=== PATIENT | male | born 1940 | race Caucasian/White ===

== ENCOUNTER 2020-07-13 07:44 | Inpatient (IN) ==
[2020-07-13] MEDS ORDERED: CARDIZEM INJ 50 MG VIAL ONE ×2 (08:07→08:42)
[2020-07-13] MEDS ORDERED: NS 1000 ML 1,000 ML ONE (08:07)
[2020-07-13] MEDS ORDERED: CARDIZEM INJ 50 MG VIAL IVP ONE ×2 (08:15→08:54)
--- NOTE | 2020-07-13 08:24 | DR.SOBA ---
HPI Time Seen Time Seen by Provider: 07/13/20 08:14 Primary Care Physician Primary Care Physician: KIMBERLY ALEJANDRO Complaints Chief Complaint Doctors Comments: A 79 y/o male presenting with intermittent recurrent c/p x 3 months, with SOB. He has palpitations but he has a hx. of a. fib., CAD-s/p angioplasty x 1 vessel. 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 His symptoms worsened upon awakening this morning. Chief Complaint:: PT. C/O CHEST TIGHTNESS AND SHORTNESS OF BREATH. PT. STATES HE SEEN DR. GUPTA A WEEK OR SO AGO AND IS WAITING TO BE SCHEDULED FOR AN OUT PATIENT STRESS TEST. PAIN WORSENED THIS MORNING WHEN PT. WOKE UP. COVID-19 Coronavirus risk:travel/contact w/high risk person: No Has patient experienced Coronavirus symptoms: Yes Coronavirus symptoms experienced: Shortness of Breath Reviewed Nurses Notes Reviewed: Yes Source History Provided: Patient Mode of Arrival Mode of Arrival: Wheelchair Timing Onset of Chief Complaint: 07/13/20 Duration Duration: Months Context Onset:: At Rest PE Risk Factors:: None History of:: None Currently on:: Neither Prehospital Care:: None Modifying Factors Worsens:: Nothing Improves:: Nothing Associated Signs and Symptoms Associated Signs and Symptoms: Chest Pain If Chest Pain Quality: Other (tightness) Location: Substernal If Cough Cough: None PMH PMH Past Medical History: Yes Past Medical History: Coronary Artery Disease, Diabetes and Dyslipidemia Past Medical History Comment: A-FIB Past Surgical History: Yes Surgical History: Angioplasty/Stents, Appendectomy and Ortho Surgery Family History History of Family Medical Conditions: Yes Family Medical History: Cancer Social History Does patient currently use any type of tobacco product: No Have you used tobacco products in the last 12 months: No Type of Tobacco Use: None Does any household member use tobacco: No Alcohol Use: None Do you use any recreational Drugs:: No Lives With: Alone Lives Where: Home Travel Risk Coronavirus risk:travel/contact w/high risk person: No Has patient experienced Coronavirus symptoms: Yes Coronavirus symptoms experienced: Shortness of Breath Infectious screening In the last 2 months have you had wt loss of >10#?: NO Have you had fever, night sweats or hemotysis?: No Have you traveled outside the country in the last 6 months?: No Isolation: Standard ROS Review of Systems Constitutional: No Symptoms Reported Eyes: No Symptoms Reported ENTM: No Symptoms Reported Respiratoy: Short of Breath Cardiovascular: Chest Pain and Palpitations Gastrointestinal/Abdominal: No Symptoms Reported Genitourinary: No Symptoms Reported Neurological: No Symptoms Reported Musculoskeletal: No Symptoms Reported Integumentary: No Symptoms Reported Hematologic/Lymphatic: No Symptoms Reported Endocrine: No Symptoms Reported Psychiatric: No Symptoms Reported PE Vital Signs Vitals: Temperature 97.8 F Pulse Rate 106 Respiratory Rate 25 Blood Pressure [Left Arm] 149/75 Blood Pressure 147/103 O2 Sat by Pulse Oximetry 94 General Limitations: No Limitations General Appearance: Alert and In No Apparent Distress Head Head Exam: Normal Inspection, Atraumatic and Normocephalic Eyes Eye exam: Normal Appearance and EOMI ENT ENT Exam: Normal Exam, Normal Oropharynx, Normal External Ear Exam and Mucous Membranes Moist Neck Neck Exam: Normal Inspection, Full ROM and Trachea Midline Chest Chest Inspection: Normal Inspection and Symmetric Chest Wall Rise Respiratory Respiratory Exam: Normal Lung Sounds Bilat Cardiovascular Cardiovascular Exam: Tachycardia, Irregular Rhythm, Normal Heart Sounds, +S1 and +S2 Abdominal Exam Abdominal Exam: Normal Inspection, Normal Bowel Sounds and Soft Extremities Extremities Exam: Normal Inspection and Full ROM Back Back Exam: Normal Inspection and Full ROM Neurologic Neurological Exam: Alert and Oriented X3 Psychiatric Psychiatric Exam: Normal Affect and Normal Mood Skin Skin Exam: Dry and Normal Color ROR Labs Reviewed Result Diagrams: 07/13/20 07:55 07/13/20 07:55 Laboratory: WBC 12.8 X10^3/uL (3.6-10.0) H 07/13/20 07:55 RBC 4.70 X10^6/uL (4.7-6.0) 07/13/20 07:55 Hgb 14.7 g/dL (13.5-18.0) 07/13/20 07:55 Hct 44.7 % (42.0-54.0) 07/13/20 07:55 MCV 95.2 fL (80.0-100.0) 07/13/20 07:55 MCH 31.4 pg (27.0-34.0) 07/13/20 07:55 MCHC 33.0 g/dL (33.0-35.0) 07/13/20 07:55 RDW 14.1 % (11.6-16.5) 07/13/20 07:55 Plt Count 256 X10^3/uL (150.0-450.0) 07/13/20 07:55 MPV 9.1 fL (7.4-11.0) 07/13/20 07:55 Neut % (Auto) 75.8 % (42.0-75.0) H 07/13/20 07:55 Lymph % (Auto) 14.9 % (21.0-51.0) L 07/13/20 07:55 [place] % (Auto) 8.0 % (0.0-13.0) 07/13/20 07:55 Eos % (Auto) 0.9 % (0.9-2.9) 07/13/20 07:55 Baso % (Auto) 0.4 % (0.2-1.0) 07/13/20 07:55 Neut # (Auto) 9.7 x10^3/uL (2.2-4.8) H 07/13/20 07:55 Lymph # (Auto) 1.9 X10^3/uL (1.3-2.9) 07/13/20 07:55 [place] # (Auto) 1.0 x10^3/uL (0.3-0.8) H 07/13/20 07:55 Eos # (Auto) 0.1 x10^3/uL (0.0-0.2) 07/13/20 07:55 Baso # (Auto) 0.1 X10^3/uL (0.0-0.1) 07/13/20 07:55 Absolute Nucleated RBC 0.1 /100WBC 07/13/20 07:55 Sodium 141 mmol/L (136-145) 07/13/20 07:55 Corrected Sodium 144 mmol/L (136-145) 07/13/20 07:55 Potassium 4.3 mmol/L (3.5-5.1) 07/13/20 07:55 Chloride 105 mmol/L (98-107) 07/13/20 07:55 Carbon Dioxide 28.4 mmol/L (21-32) 07/13/20 07:55 BUN 26 mg/dL (7-18) H 07/13/20 07:55 Creatinine 1.62 mg/dL (0.70-1.30) H 07/13/20 07:55 Est GFR (MDRD) Af Amer 53 (>60) L 07/13/20 07:55 Est GFR (MDRD) Non-Af 44 (>60) L 07/13/20 07:55 Glucose 239 mg/dL (65-99) H 07/13/20 07:55 Calcium 9.3 mg/dL (8.5-10.1) 07/13/20 07:55 Corrected Calcium TNP 07/13/20 07:55 Total Bilirubin 0.80 mg/dL (0.2-1.0) 07/13/20 07:55 AST 18 Units/L (15-37) 07/13/20 07:55 ALT 26 Units/L (12-78) 07/13/20 07:55 Alkaline Phosphatase 58 Units/L (46-116) 07/13/20 07:55 Creatine Kinase 31 Units/L (39-308) L 07/13/20 07:55 CK-MB (CK-2) < 1.0 ng/mL (0-4.0) 07/13/20 07:55 CK/CKMB % Calc 3.2 % (<4) 07/13/20 07:55 Troponin I < 0.02 ng/mL (0-1.5) 07/13/20 07:55 Total Protein 8.3 g/dL (6.4-8.2) H 07/13/20 07:55 Albumin 3.6 g/dL (3.4-5.0) 07/13/20 07:55 Globulin 4.7 g/dL (2.5-4.5) H 07/13/20 07:55 Albumin/Globulin Ratio 0.8 Ratio (1.1-2.1) L 07/13/20 07:55 EKG Rate: 156 [place]: Normal Rhythm: Afib Block: None Hypertrophy: None ST: Normal Opioid Opioid Risk Tool Age (Julio Cesar box if 16-45): No History of Preadolescent Sexual Abuse: No Total: 0 Total Score Risk Category: Low Risk Copyright: [place] [employer] predicting aberrant behaviors Diagnosis Discharge Problem: A-fib Qualifiers: Atrial fibrillation type: paroxysmal Qualified Code(s): I48.0 - Paroxysmal atrial fibrillation Chest pain Qualifiers: Chest pain type: unspecified Qualified Code(s): R07.9 - Chest pain, unspecified CAD (coronary artery disease) Qualifiers: Coronary Disease-Associated Artery/Lesion type: [place] artery [place] vs. transplanted heart: [place] heart Associated angina: with stable angina Qualified Code(s): I25.118 - Atherosclerotic heart disease of [place] coronary artery with other forms of angina pectoris Type 2 diabetes mellitus Qualifiers: Diabetes mellitus long-term insulin use: without buttermaker helper use Diabetes mellitus complication status: without complication Qualified Code(s): E11.9 - Type 2 diabetes mellitus without complications Instructions Instructions: Atrial Fibrillation, [id number] ADDITIONAL NOTES Additional Notes Additional Notes: Name: TARAH CHOE : 1940 Sex: M Location: ER Order Number(s): [id number] Procedure(s):CHEST, 1 VIEW Ordering Physician: CESAR MAO Primary Care: Faisal Storm Service Date: 07/13/20 Service Time: 0814 HISTORY Chest pain, shortness of breath STUDY Chest AP portable COMPARISON None FINDINGS The heart is enlarged. No congestive heart failure is noted. The aorta is calcified. The aortic knob appears dilated. Chest CT with contrast should be considered for further evaluation of the thoracic aorta. The lungs are free of acute infiltrates. No pleural effusions are identified. Bony thorax is unremarkable. IMPRESSION Mild cardiomegaly without congestive heart failure No infiltrates Prominent aortic knob. Chest CT with contrast would be of further diagnostic value in assessing the thoracic aorta and should be considered. Electronically signed by: CATHERINE CHOE (Jul 13, 2020 08:51:17)
[2020-07-13 08:30] LABS: BASOPHILS # (AUTO) 0.1 X10^3/uL (0.0-0.1); BASOPHILS % (AUTO) 0.4 % (0.2-1.0); EOSINOPHILS # (AUTO) 0.1 x10^3/uL (0.0-0.2); EOSINOPHILS % (AUTO) 0.9 % (0.9-2.9); HEMATOCRIT 44.7 % (42.0-54.0); HEMOGLOBIN 14.7 g/dL (13.5-18.0); LYMPHOCYTES # (AUTO) 1.9 X10^3/uL (1.3-2.9); LYMPHOCYTES % (AUTO) 14.9 % (21.0-51.0); MEAN CORPUSCULAR HEMOGLOBIN 31.4 pg (27.0-34.0); MEAN CORPUSCULAR VOLUME 95.2 fL (80.0-100.0); MEAN PLATELET VOLUME 9.1 fL (7.4-11.0); NEUTROPHILS # (AUTO) 9.7 x10^3/uL (2.2-4.8); NEUTROPHILS % (AUTO) 75.8 % (42.0-75.0); PLATELET COUNT 256 X10^3/uL (150.0-450.0); RED CELL DISTRIBUTION WIDTH 14.1 % (11.6-16.5); WHITE BLOOD COUNT 12.8 X10^3/uL (3.6-10.0)
[2020-07-13 08:41] LABS: BLOOD UREA NITROGEN 26 mg/dL (7-18); CALCIUM 9.3 mg/dL (8.5-10.1); CARBON DIOXIDE 28.4 mmol/L (21-32); CHLORIDE 105 mmol/L (98-107); COR NA(FOR HYPERGLY) 144 mmol/L (136-145); CREATININE 1.62 mg/dL (0.70-1.30); SODIUM 141 mmol/L (136-145); TROPONIN I < 0.02 ng/mL (0-1.5); eGFR NON BLACK RACES 44 (>60)
[2020-07-13 08:45] LABS: ALANINE AMINOTRANSFERASE 26 Units/L (12-78); ALBUMIN 3.6 g/dL (3.4-5.0); ALKALINE PHOSPHATASE 58 Units/L (46-116); ASPARTATE AMINO TRANSFERASE 18 Units/L (15-37); CKMB % 3.2 % (<4); CREATINE KINASE 31 Units/L (39-308); CREATINE KINASE MB < 1.0 ng/mL (0-4.0); TOTAL PROTEIN 8.3 g/dL (6.4-8.2)
--- NOTE | 2020-07-13 08:53 | RAD ---
HISTORYChest pain, shortness of breathSTUDYChest AP portableCOMPARISONNoneFINDINGSThe heart is enlarged. No congestive heart failure is noted. The aorta is calcified. The aortic knob appears dilated. Chest CT with contrast should be considered for further evaluation of the thoracic aorta. The lungs are free of acute infiltrates. No pleural effusions are identified. Bony thorax is unremarkable.IMPRESSIONMild cardiomegaly without congestive heart failureNo infiltratesProminent aortic knob. Chest CT with contrast would be of further diagnostic value in assessing the thoracic aorta and should be considered.Electronically signed by: CATHERINE CHOE (Jul 13, 2020 08:51:17)
[2020-07-13] MEDS: NS 1000 ML 1,000 ML IV SCH (08:55)
[2020-07-13] MEDS ORDERED: FLEXERIL TAB 10 MG PO PRN (09:48)
[2020-07-13] MEDS ORDERED: NITROSTAT SL PRN (09:48)
[2020-07-13] MEDS ORDERED: RESTORIL CAP 15 MG PO PRN (09:48)
[2020-07-13] MEDS: CARDIZEM INJ 125 MG VIAL 125 MG in NS 100 ML IV 100 ML IV PRN ×2 (10:25→21:28)
[2020-07-13] MEDS ORDERED: HumaLOG SC PRN (14:25)
[2020-07-13] MEDS ORDERED: CARDIZEM TAB 30 MG PLAIN PO SCH (14:25)
[2020-07-13 14:31] LABS: CKMB % 3.5 % (<4); CREATINE KINASE 29 Units/L (39-308); CREATINE KINASE MB < 1.0 ng/mL (0-4.0); TROPONIN I < 0.02 ng/mL (0-1.5)
[2020-07-13] MEDS ORDERED: HumuLIN R SUBCUT PRN (17:42)
[2020-07-13] MEDS ORDERED: GLUCOTROL ONE (20:00)
[2020-07-13] MEDS ORDERED: SNACK - Diabetic Appropriate PO SCH ×2 (20:00)
[2020-07-13] MEDS ORDERED: GLUCOPHAGE ONE (20:01)
[2020-07-13] MEDS ORDERED: CELEBREX PO ONE (20:01)
[2020-07-13] MEDS ORDERED: LIPITOR TAB 20 MG ONE (20:01)
[2020-07-13] MEDS ORDERED: TRICOR TAB 48 MG ONE (20:01)
[2020-07-13] MEDS: CELEBREX PO SCH (20:45)
[2020-07-13] MEDS: GLUCOTROL PO SCH (20:45)
[2020-07-13] MEDS ORDERED: GLUCOPHAGE PO SCH (21:00)
[2020-07-13] MEDS ORDERED: TRICOR TAB 48 MG PO SCH (21:00)
[2020-07-13] MEDS ORDERED: LIPITOR TAB 20 MG PO SCH (21:00)
[2020-07-13 21:06] LABS: CKMB % 3.2 % (<4); CREATINE KINASE 31 Units/L (39-308); CREATINE KINASE MB < 1.0 ng/mL (0-4.0); TROPONIN I 0.02 ng/mL (0-1.5)
[2020-07-14 03:12] LABS: CKMB % 3.3 % (<4); CREATINE KINASE 30 Units/L (39-308); CREATINE KINASE MB < 1.0 ng/mL (0-4.0); TROPONIN I 0.02 ng/mL (0-1.5)
[2020-07-14 05:38] LABS: BASOPHILS # (AUTO) 0.1 X10^3/uL (0.0-0.1); BASOPHILS % (AUTO) 0.5 % (0.2-1.0); EOSINOPHILS # (AUTO) 0.2 x10^3/uL (0.0-0.2); EOSINOPHILS % (AUTO) 2.5 % (0.9-2.9); HEMATOCRIT 39.8 % (42.0-54.0); HEMOGLOBIN 13.2 g/dL (13.5-18.0); LYMPHOCYTES # (AUTO) 1.2 X10^3/uL (1.3-2.9); LYMPHOCYTES % (AUTO) 11.9 % (21.0-51.0); MEAN CORPUSCULAR HEMOGLOBIN 31.7 pg (27.0-34.0); MEAN CORPUSCULAR HGB CONC 33.2 g/dL (33.0-35.0); MEAN CORPUSCULAR VOLUME 95.4 fL (80.0-100.0); MEAN PLATELET VOLUME 9.1 fL (7.4-11.0); MONOCYTES # (AUTO) 0.9 x10^3/uL (0.3-0.8); MONOCYTES % (AUTO) 8.8 % (0.0-13.0); NEUTROPHILS # (AUTO) 7.7 x10^3/uL (2.2-4.8); NEUTROPHILS % (AUTO) 76.3 % (42.0-75.0); PLATELET COUNT 185 X10^3/uL (150.0-450.0); RED BLOOD COUNT 4.17 X10^6/uL (4.7-6.0); RED CELL DISTRIBUTION WIDTH 13.9 % (11.6-16.5); WHITE BLOOD COUNT 10.1 X10^3/uL (3.6-10.0)
[2020-07-14 05:45] LABS: ALANINE AMINOTRANSFERASE 23 Units/L (12-78); ALKALINE PHOSPHATASE 50 Units/L (46-116); ASPARTATE AMINO TRANSFERASE 16 Units/L (15-37); BLOOD UREA NITROGEN 29 mg/dL (7-18); CALCIUM 9.1 mg/dL (8.5-10.1); CARBON DIOXIDE 24.9 mmol/L (21-32); CHLORIDE 109 mmol/L (98-107); COR CA(FOR HYPOALB) 9.9 mg/dL (8.5-10.1); COR NA(FOR HYPERGLY) 145 mmol/L (136-145); CREATININE 1.22 mg/dL (0.70-1.30); SODIUM 143 mmol/L (136-145); TOTAL PROTEIN 7.3 g/dL (6.4-8.2); eGFR NON BLACK RACES > 60 (>60)
[2020-07-14] MEDS: CARDIZEM INJ 125 MG VIAL 125 MG in NS 100 ML IV 100 ML IV PRN (08:53)
[2020-07-14] MEDS: CELEBREX PO SCH (08:57)
[2020-07-14] MEDS ORDERED: MULTAQ PO SCH (09:00)
[2020-07-14] MEDS ORDERED: PLAVIX PO SCH (09:00)
[2020-07-14] MEDS ORDERED: CYMBALTA PO SCH (09:00)
[2020-07-14] MEDS ORDERED: IMDUR PO SCH (09:00)
[2020-07-14] MEDS ORDERED: PROTONIX TAB 40 MG PO SCH (09:00)
[2020-07-14] MEDS ORDERED: CARDIZEM CD 120 MG 24-HR PO SCH (09:00)
[2020-07-14] MEDS: GLUCOTROL PO SCH (09:05)
[2020-07-14] MEDS: NS 1000 ML 1,000 ML IV SCH (09:06)
[2020-07-14 10:05] LABS: CHOL/HDL RATIO 3.5 (0.0-5.0)
[2020-07-14 11:44] LABS: CKMB % 3.6 % (<4); CREATINE KINASE 28 Units/L (39-308); CREATINE KINASE MB < 1.0 ng/mL (0-4.0); TROPONIN I < 0.02 ng/mL (0-1.5)
[2020-07-14] MEDS ORDERED: ASPIRIN 81 MG CHEWTAB PO STA (11:52)
[2020-07-14] MEDS ORDERED: HEPARIN SODIUM IN D5W 25,000 UNITS/500 ML BAG IV PRN (11:55)
[2020-07-14] MEDS ORDERED: NITRO-BID OINT 2% UD (E.R. USE ONLY) TD ONE (11:58)
[2020-07-14] MEDS ORDERED: HEPARIN SODIUM INJ 5000 UNITS ONE (13:01)
--- NOTE | 2020-07-14 13:11 | DR.H&P ---
H&P - History & Physical for Day of: H&P Date: 07/13/20 - Chief Complaint Chief Complaint: CHEST PAIN - History of Present Illness History of Present Illness: PT IS 79 WM ER ADMISSION WITH CO CHEST PAIN AND SOB. PT CO CHEST PAIN "PRESSURE". PT CO INCREASED SOB OVER PAST FEW WEEKS. PT CO DIZZY EPISODES. A 79 y/o male presenting with intermittent recurrent c/p x 3 months, with SOB. He has palpitations but he has a hx. of a. fib., CAD-s/p an gioplasty x 1 vessel. 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 PT WAS IN AFIB WITH RVR ON ARRIVAL. PT ADMITTED TO ICU FOR TREATMENT OF ACUTE ILLNESS - Past Medical History Past Medical History: Coronary Artery Disease, Dyslipidemia, Diabetes - Past Surgical History Surgical History: Appendectomy, Ortho Surgery - Family History Family Medical History: Diabetes Mellitus, Coronary Artery Disease - Social History Does patient currently use any type of tobacco product: No Have you used tobacco products in the last 12 months: No Type of Tobacco Use: None Does any household member use tobacco: No Alcohol Use: None Drug Use: None - Medications Home Medications: morphine Adverse Reaction (Verified 07/13/20 07:53) red dye Adverse Reaction (Verified 07/13/20 07:53) Sulfa (Sulfonamide Antibiotics) Adverse Reaction (Verified 07/13/20 07:53) CONTINUE taking the following medications celecoxib 100 mg PO BID 07/13/20 [History] cyclobenzaprine 5 mg PO TID PRN 07/13/20 [History] diltiazem HCl [Cartia XT] 120 mg PO DAILY 07/13/20 [History] duloxetine 30 mg PO DAILY 07/13/20 [History] pantoprazole 40 mg PO DAILY 07/13/20 [History] temazepam 15 mg PO HS PRN 07/13/20 [History] - Review of Systems Constitutional: Weakness Eyes: No Symptoms Reported ENT: No Symptoms Reported Respiratory: SOB with Excertion Cardiovascular: Chest Pain, Palpitations Gastrointestinal: No Symptoms Reported Genitourinary: No Symptoms Reported Musculoskeletal: No Symptoms Reported Skin: No Symptoms Reported Neurological: No Symptoms Reported - Physical Exam Vital Signs: Temperature 97.6 F Pulse Rate [Bilateral Radial] 98 Pulse Rate 137 Respiratory Rate 22 Blood Pressure [Left Arm] 144/75 Blood Pressure 151/96 O2 Sat by Pulse Oximetry 96 Oriented: Normal Eyes: Normal Ear: Normal Nose: Normal Throat: Normal Respiratory: RLL Diminished, LLL Diminished Cardiovascular: Irregular Auscultation: Bowel Sounds: Normal Palpation: Normal Tenderness: Normal Skin: Normal Musculoskeletal: Normal Psychiatric: Anxiety Affect: Anxious Speech Pattern: Clear, Appropriate - Assessment/Plan (1) Chest pain Qualifiers: Chest pain type: precordial pain Qualified Code(s): R07.2 - Precordial pain Status: Acute Plan: ADMIT, SERIAL CE AND EKG. CXR ONADMISSION, CARDIZEM DRIP. BP CONTROL, BP CONTROL. HOLD METFORMIN. VERIFY HOME MEDICATION (2) A-fib Qualifiers: Atrial fibrillation type: paroxysmal Qualified Code(s): I48.0 - Paroxysmal atrial fibrillation Status: Acute (3) CAD (coronary artery disease) Qualifiers: Coronary Disease-Associated Artery/Lesion type: [place] artery [place] vs. transplanted heart: [place] heart Associated angina: with stable angina Qualified Code(s): I25.118 - Atherosclerotic heart disease of [place] coronary artery with other forms of angina pectoris Status: Acute (4) Type 2 diabetes mellitus Qualifiers: Diabetes mellitus assisted insulin use: without assisted use Diabetes mellitus complication status: without complication Qualified Code(s): E11.9 - Type 2 diabetes mellitus without complications Status: Acute - Allergies Allergies/Adverse Reactions: Allergies Allergy/AdvReac Type Severity Reaction Status Date / Time morphine AdvReac Verified 07/13/20 07:53 red dye AdvReac Verified 07/13/20 07:53 Sulfa (Sulfonamide AdvReac Verified 07/13/20 07:53 Antibiotics)
[2020-07-14 13:23] VITALS: BP 122/80
[2020-07-14 14:16] VITALS: BMI 36.1
== END 2020-07-14 13:20 | disposition home or self-care (01) | DRG 310 ==
LOC: MED/SURG 07:44 → ER 07:44 → OBSVTOIN 09:41 → MED/SURG 09:51
PROVIDERS: ADMIT Internal Medicine; ATTEND Internal Medicine